=== PATIENT | female | born 1970 | race Hispanic/Latino ===

== ENCOUNTER 2018-06-04 17:02 | Observation (INO) | payer MEDICAID ==
[~2018-06-04] VITALS: Ht 160 cm; Wt 100.2 kg
[2018-06-04] MEDS ORDERED: SODIUM CHLORIDE 0.9% 1000ML 1,000 ML IV ONE (17:55)
[2018-06-04 17:58] LABS: BASOPHILS % (AUTO) 0.7 % (0.0-5.0); HEMATOCRIT 46.8 % (36-48); LYMPHOCYTES % (AUTO) 23.3 % (21.0-51.0); MEAN CORPUSCULAR HEMOGLOBIN 27.7 pg (27.0-33.0); MEAN CORPUSCULAR HGB CONC 32.4 g/dL (32.0-36.0); MEAN CORPUSCULAR VOLUME 85.5 fL (79-99); NUCLEATED RED BLOOD CELLS 0.1 % (0.0-0.19); PLATELET COUNT (AUTO) 168 K/uL (130-400); RED BLOOD CELL COUNT(AUTO) 5.48 MIL/uL (4.00-5.50); WHITE BLOOD COUNT (AUTO) 4.5 K/uL (4.8-10.8)
[2018-06-04 18:17] LABS: CREATININE 1.3 mg/dL (0.5-1.5); POTASSIUM 3.6 mmol/L (3.5-5.1)
[2018-06-04] MEDS ORDERED: POTASSIUM CHLORIDE 20 MEQ ERTAB PO ONE (18:54)
[2018-06-04] MEDS ORDERED: SODIUM CHLORIDE 0.9% 100 ML IV ONE (18:55)
[2018-06-04] MEDS ORDERED: INSULIN HUMULIN R 100 UNIT/ML 3ML ONE ×2 (18:56→19:29)
[2018-06-04] MEDS ORDERED: SODIUM CHLORIDE 0.9% 1000ML 1,000 ML IV SCH (19:45)
[2018-06-04] MEDS ORDERED: ACETAMINOPHEN 325 MG TAB PO PRN (19:45)
[2018-06-04 19:53] LABS: APPEARANCE,URINE Cloudy (CLEAR); BILIRUBIN,URINE Negative (NEGATIVE); COLOR,URINE Yellow (YELLOW); GLUCOSE, URINE (UA) >=1000 mg/dL (NEGATIVE); KETONES,URINE Negative (NEGATIVE); LEUKOCYTE ESTERASE ,URINE Trace (NEGATIVE); NITRATE,URINE Negative (NEGATIVE); OCCULT BLOOD,URINE Negative (NEGATIVE); PH,URINE 5.5 (5.0-8.0); PROTEIN,URINE Negative (NEGATIVE); UROBILINOGEN,URINE 0.2 mg/dL (0.2-1.0)
[2018-06-04] MEDS ORDERED: ACETAMINOPHEN 325 MG TAB ONE (20:07)
[2018-06-04 20:18] LABS: BACTERIA,URINE Rare /HPF (None Seen); RBC,URINE None Seen /HPF (0-1)
[2018-06-04 20:19] LABS: YEAST,URINE BUDDING Many /HPF (None Seen)
[2018-06-04] MEDS ORDERED: METOPROLOL TARTRATE 25 MG TAB ONE (20:52)
[2018-06-04] MEDS: METOPROLOL TARTRATE 25 MG TAB PO SCH (21:00)
[2018-06-04 22:50] VITALS: BP 163/93
[2018-06-04] MEDS ORDERED: LISI40TA4 PO (23:10)
[2018-06-04] MEDS ORDERED: METF500S7 PO (23:10)
[2018-06-05] VITALS (7 sets, daily range): BP systolic 127–175; BP diastolic 82–117
[2018-06-05] MEDS: FAMOTIDINE/PF 20 MG/2 ML VIAL IV SCH ×3 (00:15→21:18)
[2018-06-05] MEDS: ENOXAPARIN SODIUM 40 MG/0.4 ML SYRINGE SQ SCH ×3 (00:16→21:21)
[2018-06-05] MEDS ORDERED: GLUCAGON 1MG KIT 1 MG ML IM PRN (00:30)
[2018-06-05] MEDS ORDERED: INSULIN HUMULIN R 100 UNIT/ML 3ML ONE (00:30)
[2018-06-05] MEDS ORDERED: DEXTROSE 50%-WATER 50 ML DISP.SYRIN IV PRN (00:30)
[2018-06-05] MEDS: INSULIN HUMULIN R 100 UNIT/ML 3ML SQ SCH ×5 (04:28→21:17)
[2018-06-05 05:48] LABS: ALBUMIN 3.3 g/dL (3.5-5.0); BILIRUBIN,TOTAL 0.6 mg/dL (0.2-1.0); CREATININE 0.9 mg/dL (0.5-1.5); POTASSIUM 3.6 mmol/L (3.5-5.1); THYROID STIMULATING HORMONE 2.45 uIU/mL (0.36-3.74); TOTAL PROTEIN, SERUM 6.9 g/dL (6.0-8.3)
[2018-06-05 05:54] LABS: HEMOGLOBIN A1C 11.1 % (4.0-6.0)
[2018-06-05] MEDS: METOPROLOL TARTRATE 25 MG TAB PO SCH ×2 (09:15→21:19)
[2018-06-05] MEDS: LEVOFLOXACIN 500 MG/D5W 100 ML 100 ML IV SCH (09:16)
[2018-06-05] MEDS: ONDANSETRON HCL 4 MG/2 ML VIAL IV PRN (13:12)
[2018-06-05] MEDS ORDERED: LISINOPRIL 40 MG TABLET ONE (15:37)
[2018-06-05] MEDS ORDERED: HYDRALAZINE HCL 20 MG/ML VIAL IV PRN (15:45)
--- NOTE | 2018-06-05 15:52 | NUR ---
RD Notification Patient with uncontrolled diabetes. Patient with [address]gm CCD in [address]. RD provided Diet education. Patient PO intake 100%. Patient reports some nausea;nursing notified. Patient LBM 06/04/18. Patient monitored labs: Glu 185, A1C 11.1, Ca 7.9, Alb 3.3. RD to continue to monitor. Please notify RD as nutritional concerns arise. Thank you. Addendum: 06/05/18 at [address] Amended: Links added.
--- NOTE | 2018-06-05 15:58 | NUR ---
Diet Education GABRIEL Provided Diabetes Nutrition diet education. GABRIEL provided reference materials and handouts. GABRIEL reviewed handouts with patient. Patient verbalized understanding. Patient encouraged to ask questions. RD to follow up. Addendum: 06/05/18 at [address] Amended: Links added.
--- NOTE | 2018-06-05 17:43 | NUR ---
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
[2018-06-05] MEDS ORDERED: POTASSIUM CHLORIDE 10% ELIXIR 20 MEQ/15 ML UDCUP PO PRN (20:30)
[2018-06-05] MEDS ORDERED: SODIUM CHLORIDE 0.9% 1000ML 1,000 ML IV SCH (20:30)
[2018-06-05] MEDS ORDERED: LISINOPRIL 40 MG TABLET PO SCH (21:00)
[2018-06-05] MEDS ORDERED: POTASSIUM CHLORIDE 20 MEQ ERTAB PO ONE (21:11)
[2018-06-05] MEDS: AMLODIPINE BESYLATE 5 MG TAB PO SCH (21:39)
[2018-06-05] MEDS: FLUCONAZOLE 100 MG TAB PO SCH (21:39)
[2018-06-05] MEDS: ACETAMINOPHEN 325 MG TAB PO PRN (23:09)
[2018-06-06] MEDS: POTASSIUM CHLORIDE 20 MEQ ERTAB PO PRN ×3 (00:15→17:57)
[2018-06-06] MEDS: INSULIN HUMULIN R 100 UNIT/ML 3ML SQ SCH ×5 (00:16→17:59)
[2018-06-06 04:00] VITALS: BP 137/91
[2018-06-06 05:27] LABS: BASOPHILS % (AUTO) 0.6 % (0.0-5.0); HEMATOCRIT 41.7 % (36-48); LYMPHOCYTES % (AUTO) 35.4 % (21.0-51.0); MEAN CORPUSCULAR HEMOGLOBIN 27.9 pg (27.0-33.0); MEAN CORPUSCULAR HGB CONC 33.2 g/dL (32.0-36.0); MEAN CORPUSCULAR VOLUME 84.1 fL (79-99); MONOCYTES % (AUTO) 9.6 % (3.0-13.0); NEUTROPHILS % (AUTO) 54.4 % (40.0-77.0); PLATELET COUNT (AUTO) 191 K/uL (130-400); RED BLOOD CELL COUNT(AUTO) 4.96 MIL/uL (4.00-5.50); RED CELL DISTRIBUTION WIDTH 15.1 % (11.0-15.5); WHITE BLOOD COUNT (AUTO) 4.6 K/uL (4.8-10.8)
[2018-06-06 05:34] LABS: CREATININE 0.8 mg/dL (0.5-1.5); POTASSIUM 3.3 mmol/L (3.5-5.1)
[2018-06-06] MEDS: LEVOFLOXACIN 500 MG/D5W 100 ML 100 ML IV SCH (08:06)
[2018-06-06 08:31] VITALS: BP 134/90
[2018-06-06] MEDS ORDERED: MAGNESIUM 2GM PREMIX 50ML 50 ML IV PRN (08:45)
[2018-06-06] MEDS: FAMOTIDINE/PF 20 MG/2 ML VIAL IV SCH (09:06)
[2018-06-06] MEDS: FLUCONAZOLE 100 MG TAB PO SCH (09:06)
[2018-06-06] MEDS: AMLODIPINE BESYLATE 5 MG TAB PO SCH (09:06)
[2018-06-06] MEDS: ENOXAPARIN SODIUM 40 MG/0.4 ML SYRINGE SQ SCH (09:07)
[2018-06-06] MEDS: CLOTRIMAZOLE/BETAMETHASONE DIP 45 GM CREAM.GM. TP SCH ×2 (09:07)
[2018-06-06] MEDS: METOPROLOL TARTRATE 25 MG TAB PO SCH (09:08)
[2018-06-06] MEDS ORDERED: MAGNESIUM 2GM PREMIX 50ML 50 ML IV ONE (09:13)
[2018-06-06] MEDS: ONDANSETRON HCL 4 MG/2 ML VIAL IV PRN ×2 (09:24→17:57)
[2018-06-06 12:05] VITALS: BP 143/89
[2018-06-06] MEDS ORDERED: AMLO5TAB4 PO (13:10)
[2018-06-06] MEDS ORDERED: GLYB5TAB8 PO (13:10)
[2018-06-06] MEDS ORDERED: LEVO500T2 PO (13:10)
[2018-06-06] MEDS ORDERED: METF-446 PO (13:10)
[2018-06-06] MEDS ORDERED: METO25 PO (13:10)
[2018-06-06] MEDS: ACETAMINOPHEN 325 MG TAB PO PRN (13:31)
[2018-06-06 16:04] VITALS: BP 156/106
[2018-06-06 19:00] VITALS: BP 152/92
== END 2018-06-06 19:15 | disposition home or self-care (01) ==
LOC: EDH 17:02 → EDHIP 17:03 → 3BH 22:50
PROVIDERS: ADMIT Hospitalist; ATTEND Hospitalist
DX: E11.65 Type 2 diabetes mellitus with hyperglycemia (principal); I10 Essential (primary) hypertension; E66.01 Morbid (severe) obesity due to excess calories; I25.10 Atherosclerotic heart disease of native coronary artery without angina pectoris; N39.0 Urinary tract infection, site not specified; Z79.84 Long term (current) use of oral hypoglycemic drugs; Z79.899 Other long term (current) drug therapy; Z90.710 Acquired absence of both cervix and uterus; Z95.5 Presence of coronary angioplasty implant and graft
CPT/HCPCS: 36415 ×3; 80048 ×2; 80053; 80061; 81001; 82948 ×15; 83036; 83735; 84443; 85025 ×2; 87088; 96361 ×2; 96365; 96366; 96367; 96372 ×2; 96375; 96376 ×2; 99284; G0378 ×50; J0360; J1650 ×4; J1815 ×13; J1956 ×2; J2405 ×3; J3475; J3490 ×4; J7030 ×2

== ENCOUNTER → 2020-06-27 | Outpatient (CLI) | payer MEDICAID ==
[~2020-06-27] MED LIST: AMLO5TAB4 PO; GLYB5TAB8 PO; LEVO500T2 PO; LISI40TA9 PO; METF-446 PO; METO25 PO; REGADENOSON 0.4 MG/5 ML PF SYG IVP SCH
== END | disposition home or self-care (01) ==
LOC: RAH 10:00
PROVIDERS: ATTEND Internal Medicine Cardiovascular Disease
DX: I25.10 Atherosclerotic heart disease of native coronary artery without angina pectoris (principal)
CPT/HCPCS: 78452; 93017; 96374; A9500 ×2; J2785

== ENCOUNTER 2023-04-15 16:49 | Emergency (ER) | payer BC, MEDICAID ==
[~2023-04-15] VITALS: Ht 162.6 cm; Wt 90.3 kg
[~2023-04-15 16:49] MED LIST changes: -REGADENOSON 0.4 MG/5 ML PF SYG IVP SCH
[2023-04-15 17:05] VITALS: BP 152/100; PULSE 95; RESP 16
[2023-04-15] MEDS ORDERED: CYCL5TAB PO (18:28)
[2023-04-15] MEDS ORDERED: ACETAMINOPHEN 500 MG TABLET PO ONE (19:00)
== END 2023-04-15 19:52 | disposition home or self-care (01) ==
LOC: EDH 16:49
DX: G89.29 Other chronic pain (principal); M25.511 Pain in right shoulder; I10 Essential (primary) hypertension; E11.9 Type 2 diabetes mellitus without complications; Z79.84 Long term (current) use of oral hypoglycemic drugs; Z79.899 Other long term (current) drug therapy; Z90.710 Acquired absence of both cervix and uterus; Z98.890 Other specified postprocedural states
CPT/HCPCS: 29105; 73030